=== PATIENT | female | born 1960 | race Caucasian/White ===

== ENCOUNTER 2021-09-20 08:05 | Outpatient (CLI) | payer OTHER | END 2021-09-20 08:06 | disposition home or self-care (01) | LOC: CSHWCC 08:05 | PROVIDERS: ATTEND Nurse Practitioner Family | DX: S81.802D Unspecified open wound, left lower leg, subsequent encounter (principal); S91.001D Unspecified open wound, right ankle, subsequent encounter; R60.0 Localized edema | CPT/HCPCS: 11042; 29581; 99213; G0463 ==

== ENCOUNTER 2021-09-29 08:38 | Outpatient (CLI) | payer OTHER | END 2021-09-29 08:39 | disposition home or self-care (01) | LOC: CSHWCC 08:38 | PROVIDERS: ATTEND Nurse Practitioner Family | DX: S81.802D Unspecified open wound, left lower leg, subsequent encounter (principal); S91.001D Unspecified open wound, right ankle, subsequent encounter; R60.0 Localized edema | CPT/HCPCS: 29581; 99213; G0463 ==

== ENCOUNTER 2021-10-09 13:15 | Outpatient (CLI) | payer OTHER | END 2021-10-09 13:16 | disposition home or self-care (01) | LOC: CSHWCC 13:15 | PROVIDERS: ATTEND Nurse Practitioner Family | DX: S81.802D Unspecified open wound, left lower leg, subsequent encounter (principal); S91.001D Unspecified open wound, right ankle, subsequent encounter; R60.0 Localized edema | CPT/HCPCS: 29581 ==

== ENCOUNTER 2022-04-10 11:47 | Outpatient (CLI) | payer OTHER ==
[~2022-04-10 11:47] MED LIST: Iopamidol 300 61% 100 ML VIAL FS ONE
== END 2022-04-10 11:48 | disposition home or self-care (01) ==
LOC: CSHCT 11:47
PROVIDERS: ATTEND Surgery
DX: K43.9 Ventral hernia without obstruction or gangrene (principal); R22.2 Localized swelling, mass and lump, trunk
CPT/HCPCS: 74177; 82565

== ENCOUNTER 2022-06-22 10:42 | Outpatient (CLI) | payer OTHER | END 2022-06-22 10:43 | disposition home or self-care (01) | LOC: CSHWCC 10:42 | PROVIDERS: ATTEND Nurse Practitioner Family | DX: L89.153 Pressure ulcer of sacral region, stage 3 (principal) | CPT/HCPCS: 99213; G0463 ==

== ENCOUNTER 2022-06-22 11:14 | Outpatient (CLI) | payer OTHER | END 2022-06-22 11:15 | disposition home or self-care (01) | LOC: CSHWCC 11:14 | PROVIDERS: ATTEND Nurse Practitioner Family | DX: L89.153 Pressure ulcer of sacral region, stage 3 (principal) ==

== ENCOUNTER 2022-06-27 14:07 | Outpatient (CLI) | payer OTHER | END 2022-06-27 14:08 | disposition home or self-care (01) | LOC: CSHWCC 14:07 | PROVIDERS: ATTEND Nurse Practitioner Family | DX: L89.153 Pressure ulcer of sacral region, stage 3 (principal) | CPT/HCPCS: 99212; G0463 ==

== ENCOUNTER 2022-06-29 08:06 | Outpatient (CLI) | payer OTHER | END 2022-06-29 08:07 | disposition home or self-care (01) | LOC: CSHWCC 08:06 | PROVIDERS: ATTEND Nurse Practitioner Family | DX: L89.153 Pressure ulcer of sacral region, stage 3 (principal) | CPT/HCPCS: 97607 ==

== ENCOUNTER 2022-07-02 10:35 | Outpatient (CLI) | payer OTHER | END 2022-07-02 10:36 | disposition home or self-care (01) | LOC: CSHWCC 10:35 | PROVIDERS: ATTEND Nurse Practitioner Family | DX: L89.153 Pressure ulcer of sacral region, stage 3 (principal) | CPT/HCPCS: 97607 ==

== ENCOUNTER 2022-07-06 08:05 | Outpatient (CLI) | payer OTHER | END 2022-07-06 08:06 | disposition home or self-care (01) | LOC: CSHWCC 08:05 | PROVIDERS: ATTEND Nurse Practitioner Family | DX: L89.153 Pressure ulcer of sacral region, stage 3 (principal) | CPT/HCPCS: 11042; 97607 ==

== ENCOUNTER 2022-07-09 08:07 | Outpatient (CLI) | payer OTHER | END 2022-07-09 08:08 | disposition home or self-care (01) | LOC: CSHWCC 08:07 | PROVIDERS: ATTEND Nurse Practitioner Family | DX: L89.153 Pressure ulcer of sacral region, stage 3 (principal) | CPT/HCPCS: 97607 ==

== ENCOUNTER 2022-07-11 07:58 | Outpatient (CLI) | payer OTHER | END 2022-07-11 07:59 | disposition home or self-care (01) | LOC: CSHWCC 07:58 | PROVIDERS: ATTEND Nurse Practitioner Family | DX: L89.153 Pressure ulcer of sacral region, stage 3 (principal) | CPT/HCPCS: 97607 ==

== ENCOUNTER 2022-07-13 08:06 | Outpatient (CLI) | payer OTHER | END 2022-07-13 08:07 | disposition home or self-care (01) | LOC: CSHWCC 08:06 | PROVIDERS: ATTEND Nurse Practitioner Family | DX: L89.153 Pressure ulcer of sacral region, stage 3 (principal) | CPT/HCPCS: 97607 ==

== ENCOUNTER 2022-07-16 08:06 | Outpatient (CLI) | payer OTHER | END 2022-07-16 08:07 | disposition home or self-care (01) | LOC: CSHWCC 08:06 | PROVIDERS: ATTEND Nurse Practitioner Family | DX: L89.153 Pressure ulcer of sacral region, stage 3 (principal) | CPT/HCPCS: 99213; G0463 ==

== ENCOUNTER 2022-07-18 08:30 | Outpatient (CLI) | payer OTHER | END 2022-07-18 08:31 | disposition home or self-care (01) | LOC: CSHWCC 08:30 | PROVIDERS: ATTEND Nurse Practitioner Family | DX: L89.513 Pressure ulcer of right ankle, stage 3 (principal) | CPT/HCPCS: 99212; G0463 ==

== ENCOUNTER 2022-07-20 08:06 | Outpatient (CLI) | payer OTHER | END 2022-07-20 08:07 | disposition home or self-care (01) | LOC: CSHWCC 08:06 | PROVIDERS: ATTEND Surgery | DX: L89.153 Pressure ulcer of sacral region, stage 3 (principal) | CPT/HCPCS: 97607 ==

== ENCOUNTER 2022-07-23 08:07 | Outpatient (CLI) | payer OTHER | END 2022-07-23 08:08 | disposition home or self-care (01) | LOC: CSHWCC 08:07 | PROVIDERS: ATTEND Nurse Practitioner Family | DX: L89.153 Pressure ulcer of sacral region, stage 3 (principal) | CPT/HCPCS: 99213; G0463 ==

== ENCOUNTER 2022-07-25 08:07 | Outpatient (CLI) | payer OTHER | END 2022-07-25 08:08 | disposition home or self-care (01) | LOC: CSHWCC 08:07 | PROVIDERS: ATTEND Nurse Practitioner Family | DX: L89.153 Pressure ulcer of sacral region, stage 3 (principal) | CPT/HCPCS: 97607 ==

== ENCOUNTER 2022-07-27 08:33 | Outpatient (CLI) | payer OTHER | END 2022-07-27 08:34 | disposition home or self-care (01) | LOC: CSHWCC 08:33 | PROVIDERS: ATTEND Nurse Practitioner Family | DX: L89.153 Pressure ulcer of sacral region, stage 3 (principal) | CPT/HCPCS: 99213; G0463 ==

== ENCOUNTER 2022-07-30 08:56 | Outpatient (CLI) | payer OTHER | END 2022-07-30 08:57 | disposition home or self-care (01) | LOC: CSHWCC 08:56 | PROVIDERS: ATTEND Nurse Practitioner Family | DX: L89.153 Pressure ulcer of sacral region, stage 3 (principal) | CPT/HCPCS: 99213; G0463 ==

== ENCOUNTER 2022-08-03 10:27 | Outpatient (CLI) | payer OTHER | END 2022-08-03 10:28 | disposition home or self-care (01) | LOC: CSHWCC 10:27 | PROVIDERS: ATTEND Nurse Practitioner Family | DX: L89.153 Pressure ulcer of sacral region, stage 3 (principal) | CPT/HCPCS: 97607 ==

== ENCOUNTER 2022-08-09 08:06 | Outpatient (CLI) | payer OTHER | END 2022-08-09 08:07 | disposition home or self-care (01) | LOC: CSHWCC 08:06 | PROVIDERS: ATTEND Nurse Practitioner Family | DX: L89.513 Pressure ulcer of right ankle, stage 3 (principal) | CPT/HCPCS: 97607 ==

== ENCOUNTER 2022-08-15 08:02 | Outpatient (CLI) | payer OTHER | END 2022-08-15 08:03 | disposition home or self-care (01) | LOC: CSHWCC 08:02 | PROVIDERS: ATTEND Nurse Practitioner Family | DX: L89.153 Pressure ulcer of sacral region, stage 3 (principal) ==

== ENCOUNTER 2022-08-17 08:05 | Outpatient (CLI) | payer OTHER | END 2022-08-17 08:06 | disposition home or self-care (01) | LOC: CSHWCC 08:05 | PROVIDERS: ATTEND Nurse Practitioner Family | DX: L89.153 Pressure ulcer of sacral region, stage 3 (principal); S81.801D Unspecified open wound, right lower leg, subsequent encounter ==

== ENCOUNTER 2022-08-20 08:50 | Outpatient (CLI) | payer OTHER | END 2022-08-20 08:51 | disposition home or self-care (01) | LOC: CSHWCC 08:50 | PROVIDERS: ATTEND Nurse Practitioner Family | DX: L89.153 Pressure ulcer of sacral region, stage 3 (principal); S81.801D Unspecified open wound, right lower leg, subsequent encounter | CPT/HCPCS: 97607 ==

== ENCOUNTER 2022-08-22 08:04 | Outpatient (CLI) | payer OTHER | END 2022-08-22 08:05 | disposition home or self-care (01) | LOC: CSHWCC 08:04 | PROVIDERS: ATTEND Nurse Practitioner Family | DX: L89.153 Pressure ulcer of sacral region, stage 3 (principal); S81.801D Unspecified open wound, right lower leg, subsequent encounter ==

== ENCOUNTER 2022-08-24 09:42 | Outpatient (CLI) | payer OTHER | END 2022-08-24 09:43 | disposition home or self-care (01) | LOC: CSHWCC 09:42 | PROVIDERS: ATTEND Nurse Practitioner Family | DX: L89.153 Pressure ulcer of sacral region, stage 3 (principal); S81.801D Unspecified open wound, right lower leg, subsequent encounter | CPT/HCPCS: 99213; G0463 ==

== ENCOUNTER 2022-08-27 10:01 | Outpatient (CLI) | payer OTHER | END 2022-08-27 10:02 | disposition home or self-care (01) | LOC: CSHWCC 10:01 | PROVIDERS: ATTEND Nurse Practitioner Family | DX: L89.153 Pressure ulcer of sacral region, stage 3 (principal) ==

== ENCOUNTER 2022-08-30 09:55 | Outpatient (CLI) | payer OTHER | END 2022-08-30 09:56 | disposition home or self-care (01) | LOC: CSHWCC 09:55 | PROVIDERS: ATTEND Nurse Practitioner Family | DX: L89.153 Pressure ulcer of sacral region, stage 3 (principal); S81.801D Unspecified open wound, right lower leg, subsequent encounter | CPT/HCPCS: 99213; G0463 ==

== ENCOUNTER 2022-09-06 11:03 | Outpatient (CLI) | payer OTHER | END 2022-09-06 11:04 | disposition home or self-care (01) | LOC: CSHWCC 11:03 | PROVIDERS: ATTEND Nurse Practitioner Family | DX: L89.153 Pressure ulcer of sacral region, stage 3 (principal); S81.801D Unspecified open wound, right lower leg, subsequent encounter | CPT/HCPCS: 99213; G0463 ==

== ENCOUNTER 2022-09-13 10:57 | Outpatient (CLI) | payer OTHER | END 2022-09-13 10:58 | disposition home or self-care (01) | LOC: CSHWCC 10:57 | PROVIDERS: ATTEND Nurse Practitioner Family | DX: S81.801D Unspecified open wound, right lower leg, subsequent encounter (principal); L89.153 Pressure ulcer of sacral region, stage 3 | CPT/HCPCS: 99213; G0463 ==

== ENCOUNTER 2022-10-17 11:13 | Outpatient (CLI) | payer OTHER | END 2022-10-17 11:14 | disposition home or self-care (01) | LOC: CSHWCC 11:13 | PROVIDERS: ATTEND Nurse Practitioner Family | DX: S81.801D Unspecified open wound, right lower leg, subsequent encounter (principal); S51.802D Unspecified open wound of left forearm, subsequent encounter | CPT/HCPCS: 99213; G0463 ==

== ENCOUNTER 2022-10-31 11:06 | Outpatient (CLI) | payer OTHER | END 2022-10-31 11:07 | disposition home or self-care (01) | LOC: CSHWCC 11:06 | PROVIDERS: ATTEND Nurse Practitioner Family | DX: T23.071D Burn of unspecified degree of right wrist, subsequent encounter (principal); S81.801D Unspecified open wound, right lower leg, subsequent encounter; E11.621 Type 2 diabetes mellitus with foot ulcer; L97.411 Non-pressure chronic ulcer of right heel and midfoot limited to breakdown of skin | CPT/HCPCS: 16020; 97597 ==

== ENCOUNTER 2022-11-29 13:08 | Outpatient (CLI) | payer OTHER | END 2022-11-29 13:09 | disposition home or self-care (01) | LOC: CSHWCC 13:08 | PROVIDERS: ATTEND Nurse Practitioner Family | DX: E11.621 Type 2 diabetes mellitus with foot ulcer (principal); S81.801D Unspecified open wound, right lower leg, subsequent encounter; L97.411 Non-pressure chronic ulcer of right heel and midfoot limited to breakdown of skin | CPT/HCPCS: 99213; G0463 ==

== ENCOUNTER 2022-12-24 11:09 | Outpatient (CLI) | payer OTHER | END 2022-12-24 11:10 | disposition home or self-care (01) | LOC: CSHWCC 11:09 | PROVIDERS: ATTEND Nurse Practitioner Family | DX: S81.801D Unspecified open wound, right lower leg, subsequent encounter (principal); L89.153 Pressure ulcer of sacral region, stage 3; L89.223 Pressure ulcer of left hip, stage 3 | CPT/HCPCS: 97597 ==

== ENCOUNTER 2022-12-28 09:21 | Outpatient (CLI) | payer OTHER | END 2022-12-28 09:22 | disposition home or self-care (01) | LOC: CSHWCC 09:21 | PROVIDERS: ATTEND Nurse Practitioner Family | DX: L89.153 Pressure ulcer of sacral region, stage 3 (principal); L89.223 Pressure ulcer of left hip, stage 3 | CPT/HCPCS: 99211; G0463 ==

== ENCOUNTER 2022-12-31 14:06 | Outpatient (CLI) | payer OTHER | END 2022-12-31 14:07 | disposition home or self-care (01) | LOC: CSHWCC 14:06 | PROVIDERS: ATTEND Nurse Practitioner Family | DX: L89.153 Pressure ulcer of sacral region, stage 3 (principal); L89.223 Pressure ulcer of left hip, stage 3 | CPT/HCPCS: 99212; G0463 ==

== ENCOUNTER 2023-01-03 16:07 | Outpatient (CLI) | payer OTHER | END 2023-01-03 16:08 | disposition home or self-care (01) | LOC: CSHWCC 16:07 | PROVIDERS: ATTEND Nurse Practitioner Family | DX: L89.153 Pressure ulcer of sacral region, stage 3 (principal) | CPT/HCPCS: 99211; G0463 ==

== ENCOUNTER 2023-01-08 14:57 | Outpatient (CLI) | payer OTHER | END 2023-01-08 14:58 | disposition home or self-care (01) | LOC: CSHWCC 14:57 | PROVIDERS: ATTEND Nurse Practitioner Family | DX: L89.153 Pressure ulcer of sacral region, stage 3 (principal) | CPT/HCPCS: 99211; G0463 ==

== ENCOUNTER 2023-01-11 10:35 | Outpatient (CLI) | payer OTHER | END 2023-01-11 10:36 | disposition home or self-care (01) | LOC: CSHWCC 10:35 | PROVIDERS: ATTEND Nurse Practitioner Family | DX: L89.153 Pressure ulcer of sacral region, stage 3 (principal) | CPT/HCPCS: 99212; G0463 ==

== ENCOUNTER 2023-01-15 13:18 | Outpatient (CLI) | payer OTHER | END 2023-01-15 13:19 | disposition home or self-care (01) | LOC: CSHWCC 13:18 | PROVIDERS: ATTEND Nurse Practitioner Family | DX: L89.153 Pressure ulcer of sacral region, stage 3 (principal) | CPT/HCPCS: 99212; G0463 ==